=== PATIENT | male | born 1955 | race Two or more races ===

== ENCOUNTER 2017-07-30 20:37 | Inpatient (IN) | payer OTHER ==
[2017-07-30 21:43] VITALS: BMI 20.7
--- NOTE | 2017-07-30 21:56 | HP ---
CIWA Score - CIWA Score Nausea/Vomitin-Mild Nausea/No Vomiting Muscle Tremors: 3 Anxiety: 2 Agitation: 2 Paroxysmal Sweats: 3 Orientation: 0-Oriented Tacttile Disturbances: 0-None Auditory Disturbances: 1-Very Mild Visual Disturbances: 1-Very Mild Sensitivity Headache: 2-Mild CIWA-Ar Total Score: 15 Admission ROS S - HPI Chief Complaint: WITHDRAWAL SYMPTOMS Allergies/Adverse Reactions: Allergies Allergy/AdvReac Type Severity Reaction Status Date / Time No Known Allergies Allergy Verified 07/30/17 21:52 History of Present Illness: 62 Y.O. MAN AN EXTENSIVE HISTORY OF COCAINE, BENZODIAZEPINE AND MARIJUANA DEPENDENCE IS HERE SEEKING DETOX. HE REPORTS HE COMPLETED DETOX AND REHAB MANY YEARS AGO. HE IS CURRENTLY ENROLLED IN [facility]S MMTP AND REPORTS HE WAS LAST DOSED TODAY AT 30MG. HE STATES HE HAS A HISTORY OF 4 YEAR BEING CLEAN WHILE INCARCERATED. Exam Limitations: No Limitations - Ebola screening Have you traveled outside of the country in the last 21 days: No Have you had contact with anyone from an Ebola affected area: No Have you been sick,other than usual withdrawal symptoms: No Do you have a fever: No - Review of Systems Constitutional: Chills, Loss of Appetite, Night Sweats, Unexplained wgt Loss EENT: reports: Blurred Vision Respiratory: reports: Shortness of Breath Cardiac: reports: Chest Pain GI: reports: Constipated : reports: No Symptoms Reported Musculoskeletal: reports: Back Pain, Neck Pain Integumentary: reports: Rash Neuro: reports: Headache, Seizure, Tremors Endocrine: reports: Other (HYPOGLYCEMIC) Hematology: reports: Anemia (BECCA), Other (thrombocytopenia) Psychiatric: reports: Anxious, Depressed, other (BIPOLAR) Other Systems: Reviewed and Negative Patient History - Patient Medical History Hx Anemia: Yes (BECCA ) Hx Asthma: No Hx Chronic Obstructive Pulmonary Disease (COPD): Yes (Emphysema) Hx Cancer: Yes (PANCREATIC CA-) Hx Cardiac Disorders: Yes (MURMUR ) Hx Congestive Heart Failure: No Hx Hypertension: Yes Hx Hypercholesterolemia: No Hx Pacemaker: No HX Cerebrovascular Accident: No Hx Seizures: Yes (ON KEPPRA ) Hx Dementia: No Hx Diabetes: No (H/O HYPOGLYCEMIA ) Hx Gastrointestinal Disorders: Yes Hx Liver Disease: Yes (CIRRHOSIS OF THE LIVER STAGE 4) Hx Genitourinary Disorders: No Hx Sexually Transmitted Disorders: No Hx Renal Disease (ESRD): No Hx Thyroid Disease: No Hx Human Immunodeficiency Virus (HIV): No Hx Hepatitis C: Yes Hx Depression: Yes Hx Suicide Attempt: No (REPORTS SI BUT NO PLAN ) Hx Bipolar Disorder: Yes Hx Schizophrenia: No - Patient Surgical History Past Surgical History: Yes Hx Appendectomy: Yes Hx Cholecystectomy: Yes Other Surgical History: TX FOR PANCREATIC CA Anesthesia Reaction: No - PPD History Previous Implant?: Yes Documented Results: Negative w/o proof PPD to be Administered?: Yes - Reproductive History Patient is a Female of Child Bearing Age (11 -55 yrs old): No - Smoking Cessation Smoking history: Current every day smoker Have you smoked in the past 12 months: Yes Aproximately how many cigarettes per day: 5 Initiated information on smoking cessation: Yes 'Breaking Loose' booklet given: 07/30/17 - Substance & Tx. History Hx Alcohol Use: No Hx Substance Use: Yes (BENZODIAZEPINE, COCAINE, MARIJUANA ) Substance Use Type: Marijuana Hx Substance Use Treatment: Yes (DETOX AND REHAB: MANY YRS AGO; DOES NOT RECALL DATE ) - Substances Abused Alprazolam (Xanax) Route: Oral Frequency: Daily Amount used: 4-6 MG Age of first use: 50 Date of Last Use: 07/27/17 Crack Route: Smoking Frequency: Daily Amount used: 1 GM Age of first use: 17 Date of Last Use: 07/28/17 Marijuana/Hashish Route: Smoking Frequency: Daily Amount used: $10 Age of first use: 15 Date of Last Use: 07/28/17 Family Disease History - Family Disease History Family Disease History: Other: Mother (ALCOHOL DEPENDENT-) Admission Physical Exam [facility] - Vital Signs Vital Signs: Vital Signs - 24 hr 07/30/17 21:41 Temperature 98.1 F Pulse Rate 67 Respiratory 18 Rate Blood Pressure 138/73 - Physical General Appearance: Yes: Thin HEENTM: Yes: Hearing grossly Normal, Normocephalic Respiratory: Yes: Lungs Clear, Normal Breath Sounds, No Respiratory Distress, No Accessory Muscle Use Neck: Yes: No masses,lesions,Nodules, Trachea in good position Breast: Yes: Breast Exam Deferred Cardiology: Yes: Regular Rhythm, Regular Rate Abdominal: Yes: Normal Bowel Sounds, Non Tender, Flat Genitourinary: Yes: Other (NO COMPLAINTS REPORTED) Back: Yes: Normal Inspection Musculoskeletal: Yes: full range of Motion, Pelvis Stable Extremities: Yes: Normal Capillary Refill, Normal Inspection Neurological: Yes: Fully Oriented, Alert, Normal Mood/Affect, Normal Response Integumentary: Yes: Rash Lymphatic: Yes: Within Normal Limits - Diagnostic (1) Sedative, hypnotic or anxiolytic dependence with withdrawal, uncomplicated Current Visit: Yes Status: Chronic (2) Cocaine dependence, uncomplicated Current Visit: Yes Status: Chronic (3) Cannabis dependence, uncomplicated Current Visit: Yes Status: Chronic (4) Cirrhosis of liver Current Visit: Yes Status: Chronic (5) Emphysema lung Current Visit: Yes Status: Chronic (6) Hepatitis C Current Visit: Yes Status: Chronic (7) Pancreatic cancer Current Visit: Yes Status: Chronic (8) GERD (gastroesophageal reflux disease) Current Visit: Yes Status: Chronic (9) Seizure Current Visit: Yes Status: Chronic (10) Hypertension Current Visit: Yes Status: Chronic (11) Hypoglycemia Current Visit: Yes Status: Chronic (12) Anemia Current Visit: Yes Status: Chronic (13) Rash Current Visit: Yes Status: Acute (14) Opioid dependence on agonist therapy Current Visit: Yes Status: Chronic (15) Thrombocytopenia Current Visit: Yes Status: Chronic Cleared for Admission [facility] - Detox or Rehab [facility] Level of Care: Medically Managed Detox Regimen/Protocol: Valium [facility] Breath Alcohol Content Breath Alcohol Content: 0 Urine Drug Screen - Results Drug Screen Negative: No Urine Drug Screen Results: THC-Marijuana, GIANNI-Cocaine, OPI-Opiates, MTD- Methadone
[2017-07-30] MEDS ORDERED: P-EPHED 60MG/TRIPROLIDI 2.5MG TABLET PO PRN (22:29)
[2017-07-30] MEDS ORDERED: guaiFENesin/D-METHORPHAN HB 10 ML UNIT-DOSE CUPS PO PRN (22:29)
[2017-07-30] MEDS ORDERED: MENTHOL/PHENOL 1 EACH UD MM PRN (22:29)
[2017-07-30] MEDS ORDERED: MAGNESIUM CITRATE 300 ML BOTTLE PO PRN (22:29)
[2017-07-30] MEDS ORDERED: ACETAMINOPHEN 325 MG TABLET (FP) PO PRN (22:29)
[2017-07-30] MEDS ORDERED: LOPERAMIDE HCL 2 MG CAPSULE PO PRN (22:29)
[2017-07-30] MEDS ORDERED: MAG HYDROX/AL HYDROX/SIMETH 30 ML UNIT-DOSE CUP PO PRN (22:29)
[2017-07-30] MEDS ORDERED: MAGNESIUM HYDROX 2400MG/30ML ORAL SUSPENSION 30 ML CUP PO PRN (22:29)
[2017-07-30] MEDS ORDERED: hydrOXYzine PAMOATE 50 MG CAPSULE (FP) PO PRN (22:29)
[2017-07-30] MEDS ORDERED: IBUPROFEN 400 MG TABLET (FP) PO PRN (22:29)
[2017-07-30] MEDS ORDERED: diazePAM 5 MG TABLET PO ONE (22:29)
[2017-07-31 00:17] LABS: URINE APPEARANCE SLCLOUDY; URINE BILIRUBIN NEGATIVE (NEGATIVE); URINE BLOOD NEGATIVE (NEGATIVE); URINE COLOR DKYELLOW; URINE GLUCOSE (UA) NEGATIVE (NEGATIVE); URINE KETONE NEGATIVE (NEGATIVE); URINE NITRITE NEGATIVE (NEGATIVE); URINE PROTEIN NEGATIVE (NEGATIVE)
[2017-07-31] MEDS: diazePAM 5 MG TABLET PO SCH ×4 (01:35→22:08)
[2017-07-31] MEDS: NYSTATIN 100000 UNIT/GM TOPICAL OINTMENT 15 GM TUBE TP SCH ×3 (01:35→22:08)
[2017-07-31] MEDS: diazePAM 5 MG TABLET PO PRN ×3 (02:13→17:19)
[2017-07-31] MEDS: PRENATAL VITAMINS W/ FOLIC ACID TABLET (FP) PO SCH (09:58)
[2017-07-31] MEDS: PANTOPRAZOLE 20 MG TABLET (FP) PO SCH (09:58)
[2017-07-31] MEDS: METHADONE HCL 10 MG TABLET PO SCH (09:58)
[2017-07-31 10:08] LABS: MCH 26.9 pg (25.7-33.7); MCHC 32.7 g/dl (32.0-35.9); MEAN CELL VOLUME 82.4 fl (80-96); MEAN PLT VOLUME 9.4 fl (7.5-11.1); RDW 18.8 % (11.9-15.9)
[2017-07-31 10:17] LABS: PLATELET COUNT 35 K/MM3 (134-434); WHITE BLOOD COUNT 1.5 K/mm3 (4.0-10.0)
[2017-07-31 10:18] LABS: SGOT/AST 88 U/L (15-37); SGPT/ALT 82 U/L (12-78)
[2017-07-31 10:22] LABS: ALBUMIN 2.3 g/dl (3.4-5.0); ALK PHOS 251 U/L (45-117); ANION GAP 6 (8-16); BILIRUBIN,TOTAL 0.6 mg/dL (0.2-1.0); CALCIUM 7.6 mg/dL (8.5-10.1); CO2 26 mmol/L (21-32); CREATININE 0.4 mg/dL (0.7-1.3); GLUCOSE,RANDOM 80 mg/dL (74-106); TOT PROT 5.7 g/dl (6.4-8.2)
--- NOTE | 2017-07-31 10:26 | EKG ---
Test Reason : Blood Pressure : / mmHG Vent. Rate : 059 BPM Atrial Rate : 059 BPM P-R Int : 126 ms QRS Dur : 084 ms QT Int : 482 ms P-R-T Axes : 066 021 053 degrees QTc Int : 477 ms SINUS BRADYCARDIA OTHERWISE NORMAL ECG NO PREVIOUS ECGS AVAILABLE Confirmed by DOROTHY KATHLEEN, ERIBERTO ([id number]) on 07/31/2017 10:25:54 AM Referred By: Confirmed By:ERIBERTO DE LA CRUZ MD
--- NOTE | 2017-07-31 11:12 | CONSULT ---
[facility] Psychiatric Consult - Data Date of interview: 07/31/17 Admission source: [facility] Identifying data: Readmission to [facility] for this 62 y/o male seeking detox treatment on for cocaine,cannabis and benzodiazepine dependence.Patient is single without children,homeless ([facility]), unemployed and supported on Public Assistance. Substance Abuse History: Patient admits to active use of cocaine,marihuana and xanax.See [facility] report for details. Smoking history: Current every day smoker. Have you smoked in the past 12 months: Yes. Aproximately how many cigarettes per day: 5. Initiated information on smoking cessation: Yes. 'Breaking Loose' booklet given: 07/30/17. - Substance & Tx. History. Hx Alcohol Use: No. Hx Substance Use: Yes (BENZODIAZEPINE, COCAINE, MARIJUANA ). Substance Use Type: Marijuana. Hx Substance Use Treatment: Yes (DETOX AND REHAB: MANY YRS AGO; DOES NOT RECALL DATE ). - Substances Abused. Alprazolam (Xanax). Route: Oral. Frequency: Daily. Amount used: 4-6 MG. Age of first use: 50. Date of Last Use: 07/27/17. Crack. Route: Smoking. Frequency: Daily. Amount used : 1 GM. Age of first use: 17. Date of Last Use: 07/28/17. Marijuana/ Hashish. Route: Smoking. Frequency: Daily. Amount used: $10. Age of first use: 15. Date of Last Use: 07/28/17 Medical History: Multiple co-morbidities : anemia,thrombocytopenia,liver cirrhosis,pancreatic cancer,hepatitis C,hypertension,seizure disorder (on levetiracetam),emphysema and arthritis. Psychiatric History: Patient reports a previous psychiatric hospitalization at [facility] in [facility] (2016).Diagnosed with MDD,Anxiety Disorder." Not sure " about Bipolar Disorder.Mr Carrasquillo indicates that he used to be prescribed risperdal " a while back." No recent OPD care.Lost to follow up for months.Patient declines to resume risperdal or psychotropic medications other than his current detoxification protocol.No reported history of suicide attempts.Currently on methadone maintenance (30 mg/day) at [facility] in [facility]. Physical/Sexual Abuse/Trauma History: No history of abuse. Additional Comment: Urine Drug Screen Results: THC-Marijuana, GIANNI-Cocaine, OPI- Opiates, MTD-Methadone.Noted. Mental Status Exam - Mental Status Exam Alert and Oriented to: Time, Place, Person Cognitive Function: Good Patient Appearance: Well Groomed Mood: Withdrawn, Hopeful Affect: Mood Congruent Patient Behavior: Fatigued, Appropriate, Cooperative Speech Pattern: Clear, Appropriate Voice Loudness: Normal Thought Process: Intact, Goal Oriented Thought Disorder: Not Present Hallucinations: Denies Suicidal Ideation: Denies Homicidal Ideation: Denies Insight/Judgement: Poor Sleep: Well Appetite: Poor, Weight loss Muscle strength/Tone: Normal Gait/Station: Normal Psychiatric Findings - Problem List ([place] 1, 2,3) (1) Opioid dependence on agonist therapy Current Visit: Yes Status: Chronic (2) Sedative, hypnotic or anxiolytic dependence with withdrawal, uncomplicated Current Visit: Yes Status: Acute (3) Cocaine dependence, uncomplicated Current Visit: Yes Status: Acute (4) Cannabis dependence, uncomplicated Current Visit: Yes Status: Acute (5) Nicotine dependence Current Visit: Yes Status: Acute Qualifiers: Nicotine product type: cigarettes Substance use status: in withdrawal Qualified Code(s): F17.213 - Nicotine dependence, cigarettes, with withdrawal - Initial Treatment Plan Initial Treatment Plan: Psychoeducation.Detoxification.Observation.
[2017-07-31] MEDS ORDERED: PNEUMOC 13-VAL CONJ-DIP CRM/PF 0.5 ML DISP.SYRIN IM ONE (12:00)
[2017-07-31] MEDS ORDERED: FLU VACCINE QUAD 60 MCG/0.5 ML (MDV 17-18) IM ONE (12:00)
[2017-07-31] MEDS ORDERED: PNEUMOCOCCAL 23 VACCINE 0.5 ML VIAL IM ONE (12:00)
--- NOTE | 2017-07-31 12:42 | PN ---
[facility] CIWA - CIWA Score Nausea/Vomitin-No Nausea/No Vomiting Muscle Tremors: 4-Moderate,w/Arms Extend Anxiety: 4-Mod. Anxious/Guarded Agitation: 3 Paroxysmal Sweats: 1-Minimal Palms Moist Orientation: 0-Oriented Tacttile Disturbances: 3-Moderate Itch/Numb/Burn Auditory Disturbances: 0-None Visual Disturbances: 0-None Headache: 0-None Present CIWA-Ar Total Score: 15 S Progress Note (SOAP) Subjective: ANXIETY,IRRITABILITY,RESTLESS,FATIGUE. Objective: 07/31/17 12:41 Vital Signs 07/31/17 09:30 Temperature 98.4 F Pulse Rate 85 Respiratory 18 Rate Blood Pressure 159/92 Laboratory Last Values WBC 1.5 K/mm3 (4.0-10.0) L* 07/31/17 07:00 RBC 3.43 M/mm3 (4.00-5.60) L 07/31/17 07:00 Hgb 9.2 GM/dL (11.7-16.9) L 07/31/17 07:00 Hct 28.2 % (35.4-49) L 07/31/17 07:00 MCV 82.4 fl (80-96) 07/31/17 07:00 MCH 26.9 pg (25.7-33.7) 07/31/17 07:00 MCHC 32.7 g/dl (32.0-35.9) 07/31/17 07:00 RDW 18.8 % (11.9-15.9) H 07/31/17 07:00 Plt Count 35 K/MM3 (134-434) L* 07/31/17 07:00 MPV 9.4 fl (7.5-11.1) 07/31/17 07:00 Sodium 140 mmol/L (136-145) 07/31/17 07:00 Potassium 3.8 mmol/L (3.5-5.1) 07/31/17 07:00 Chloride 108 mmol/L (98-107) H 07/31/17 07:00 Carbon Dioxide 26 mmol/L (21-32) 07/31/17 07:00 Anion Gap 6 (8-16) L 07/31/17 07:00 BUN 11 mg/dL (7-18) 07/31/17 07:00 Creatinine 0.4 mg/dL (0.7-1.3) L 07/31/17 07:00 Creat Clearance w eGFR > 60 (>60) 07/31/17 07:00 POC Glucometer 89 UNITS (80-120) 07/31/17 05:38 Random Glucose 80 mg/dL (74-106) 07/31/17 07:00 Calcium 7.6 mg/dL (8.5-10.1) L 07/31/17 07:00 Total Bilirubin 0.6 mg/dL (0.2-1.0) 07/31/17 07:00 AST 88 U/L (15-37) H 07/31/17 07:00 ALT 82 U/L (12-78) H 07/31/17 07:00 Alkaline Phosphatase 251 U/L (45-117) H 07/31/17 07:00 Total Protein 5.7 g/dl (6.4-8.2) L 07/31/17 07:00 Albumin 2.3 g/dl (3.4-5.0) L 07/31/17 07:00 Urine Color Dkyellow 07/30/17 23:43 Urine Appearance Slcloudy 07/30/17 23:43 Urine pH 6.0 (5.0-8.0) 07/30/17 23:43 Ur Specific [place] 1.025 (1.001-1.035) 07/30/17 23:43 Urine Protein Negative (NEGATIVE) 07/30/17 23:43 Urine Glucose (UA) Negative (NEGATIVE) 07/30/17 23:43 Urine Ketones Negative (NEGATIVE) 07/30/17 23:43 Urine Blood Negative (NEGATIVE) 07/30/17 23:43 Urine Nitrite Negative (NEGATIVE) 07/30/17 23:43 Urine Bilirubin Negative (NEGATIVE) 07/30/17 23:43 Urine Urobilinogen 2.0 mg/dL (0.2-1.0) 07/30/17 23:43 Assessment: 07/31/17 12:41 WITHDRAWAL SX Plan: CONTINUE DETOX
[2017-07-31 13:45] LABS: HIV 1 & 2 AB NEGATIVE; HIV 1 AGp24 NEGATIVE
[2017-07-31] MEDS ORDERED: levETIRAcetam 250 MG TABLET (FP) PO ONE (16:00)
[2017-07-31 17:50] LABS: URINE LEUK ESTERASE Negative (NEGATIVE)
[2017-07-31] MEDS: THIAMINE HCL 100 MG TABLET (FP) PO SCH (22:08)
[2017-07-31] MEDS: levETIRAcetam 250 MG TABLET (FP) PO SCH (22:08)
[2017-08-01] MEDS: METHADONE HCL 10 MG TABLET PO SCH (05:23)
[2017-08-01] MEDS: diazePAM 5 MG TABLET PO PRN (05:23)
[2017-08-01 10:02] LABS: BASOPHIL 0.7 % (0-2.0); EOSINOPHIL 5.2 % (0-4.5); MCH 27.1 pg (25.7-33.7); MCHC 32.5 g/dl (32.0-35.9); MEAN CELL VOLUME 83.3 fl (80-96); MEAN PLT VOLUME 8.9 fl (7.5-11.1); NEUTROPHILS 47.4 % (42.8-82.8); PLATELET COUNT 38 K/MM3 (134-434); RDW 18.8 % (11.9-15.9)
[2017-08-01] MEDS: diazePAM 5 MG TABLET PO SCH ×2 (10:54→22:36)
[2017-08-01] MEDS: PRENATAL VITAMINS W/ FOLIC ACID TABLET (FP) PO SCH (10:55)
[2017-08-01] MEDS: levETIRAcetam 250 MG TABLET (FP) PO SCH ×2 (10:55→22:36)
[2017-08-01] MEDS: PANTOPRAZOLE 20 MG TABLET (FP) PO SCH (10:55)
[2017-08-01] MEDS: NYSTATIN 100000 UNIT/GM TOPICAL OINTMENT 15 GM TUBE TP SCH ×2 (11:24→22:37)
--- NOTE | 2017-08-01 11:55 | PN ---
[facility] CIWA - CIWA Score Nausea/Vomitin-No Nausea/No Vomiting Muscle Tremors: 4-Moderate,w/Arms Extend Anxiety: 4-Mod. Anxious/Guarded Agitation: 4-Moderately Restless Paroxysmal Sweats: 1-Minimal Palms Moist Orientation: 0-Oriented Tacttile Disturbances: 3-Moderate Itch/Numb/Burn Auditory Disturbances: 0-None Visual Disturbances: 0-None Headache: 0-None Present CIWA-Ar Total Score: 16 [facility] Progress Note (SOAP) Subjective: ANXIETY,TREMORS,IRRITABILITY,RESTLESS,FATIGUE. Objective: 08/01/17 11:54 Vital Signs Temperature 98.4 F 08/01/17 11:10 Pulse Rate 82 08/01/17 11:10 Respiratory Rate 18 08/01/17 11:10 Blood Pressure 121/75 08/01/17 11:10 O2 Sat by Pulse Oximetry (%) Laboratory Last Values WBC 2.0 K/mm3 (4.0-10.0) L D 08/01/17 08:50 RBC 3.59 M/mm3 (4.00-5.60) L 08/01/17 08:50 Hgb 9.7 GM/dL (11.7-16.9) L 08/01/17 08:50 Hct 29.9 % (35.4-49) L 08/01/17 08:50 MCV 83.3 fl (80-96) 08/01/17 08:50 MCH 27.1 pg (25.7-33.7) 08/01/17 08:50 MCHC 32.5 g/dl (32.0-35.9) 08/01/17 08:50 RDW 18.8 % (11.9-15.9) H 08/01/17 08:50 Plt Count 38 K/MM3 (134-434) L 08/01/17 08:50 MPV 8.9 fl (7.5-11.1) 08/01/17 08:50 Neutrophils % 47.4 % (42.8-82.8) 08/01/17 08:50 Lymphocytes % 31.3 % (8-40) 08/01/17 08:50 Monocytes % 15.4 % (3.8-10.2) H 08/01/17 08:50 Eosinophils % 5.2 % (0-4.5) H 08/01/17 08:50 Basophils % 0.7 % (0-2.0) 08/01/17 08:50 Sodium 140 mmol/L (136-145) 07/31/17 07:00 Potassium 3.8 mmol/L (3.5-5.1) 07/31/17 07:00 Chloride 108 mmol/L (98-107) H 07/31/17 07:00 Carbon Dioxide 26 mmol/L (21-32) 07/31/17 07:00 Anion Gap 6 (8-16) L 07/31/17 07:00 BUN 11 mg/dL (7-18) 07/31/17 07:00 Creatinine 0.4 mg/dL (0.7-1.3) L 07/31/17 07:00 Creat Clearance w eGFR > 60 (>60) 07/31/17 07:00 Random Glucose 80 mg/dL (74-106) 07/31/17 07:00 POC Glucometer 104 UNITS (80-120) 08/01/17 05:22 Calcium 7.6 mg/dL (8.5-10.1) L 07/31/17 07:00 Total Bilirubin 0.6 mg/dL (0.2-1.0) 07/31/17 07:00 AST 88 U/L (15-37) H 07/31/17 07:00 ALT 82 U/L (12-78) H 07/31/17 07:00 Alkaline Phosphatase 251 U/L (45-117) H 07/31/17 07:00 Total Protein 5.7 g/dl (6.4-8.2) L 07/31/17 07:00 Albumin 2.3 g/dl (3.4-5.0) L 07/31/17 07:00 Urine Color Dkyellow 07/30/17 23:43 Urine Appearance Slcloudy 07/30/17 23:43 Urine pH 6.0 (5.0-8.0) 07/30/17 23:43 Ur Specific [employer] 1.025 (1.001-1.035) 07/30/17 23:43 Urine Protein Negative (NEGATIVE) 07/30/17 23:43 Urine Glucose (UA) Negative (NEGATIVE) 07/30/17 23:43 Urine Ketones Negative (NEGATIVE) 07/30/17 23:43 Urine Blood Negative (NEGATIVE) 07/30/17 23:43 Urine Nitrite Negative (NEGATIVE) 07/30/17 23:43 Urine Bilirubin Negative (NEGATIVE) 07/30/17 23:43 Urine Urobilinogen 2.0 mg/dL (0.2-1.0) 07/30/17 23:43 Ur Leukocyte Esterase Negative (NEGATIVE) 07/30/17 23:43 RPR Titer Nonreactive (NONREACTIVE) 07/31/17 07:00 HIV 1&2 Antibody Screen Negative 07/31/17 07:00 HIV P24 Antigen Negative 07/31/17 07:00 Assessment: 08/01/17 11:55 WITHDRAWAL SX Plan: CONTINUE DETOX INCREASE PO FLUIDS.
[2017-08-01] MEDS: FERROUS SO4 325 MG TABLET (FP) PO SCH (14:38)
[2017-08-01] MEDS: THIAMINE HCL 100 MG TABLET (FP) PO SCH (22:36)
[2017-08-02] MEDS ORDERED: TRIMETHOBENZAMIDE HCL 200MG/2ML INJ IM PRN (01:44)
[2017-08-02] MEDS: diazePAM 5 MG TABLET PO PRN (05:20)
[2017-08-02] MEDS: METHADONE HCL 10 MG TABLET PO SCH (05:20)
[2017-08-02] MEDS: PRENATAL VITAMINS W/ FOLIC ACID TABLET (FP) PO SCH (10:36)
[2017-08-02] MEDS: diazePAM 5 MG TABLET PO SCH ×2 (10:36→22:07)
[2017-08-02] MEDS: FERROUS SO4 325 MG TABLET (FP) PO SCH (10:36)
[2017-08-02] MEDS: NYSTATIN 100000 UNIT/GM TOPICAL OINTMENT 15 GM TUBE TP SCH ×2 (10:37→22:07)
[2017-08-02] MEDS: levETIRAcetam 250 MG TABLET (FP) PO SCH ×2 (10:37→22:07)
[2017-08-02] MEDS: PANTOPRAZOLE 20 MG TABLET (FP) PO SCH (10:37)
[2017-08-02 11:08] LABS: ALBUMIN 2.4 g/dl (3.4-5.0); ANION GAP 10 (8-16); CALCIUM 7.3 mg/dL (8.5-10.1); CO2 23 mmol/L (21-32); GLUCOSE,RANDOM 94 mg/dL (74-106)
[2017-08-02 11:13] LABS: ALK PHOS 288 U/L (45-117); BILIRUBIN,TOTAL 0.6 mg/dL (0.2-1.0); CREATININE 0.5 mg/dL (0.7-1.3); SGOT/AST 99 U/L (15-37); SGPT/ALT 89 U/L (12-78); TOT PROT 6.1 g/dl (6.4-8.2)
--- NOTE | 2017-08-02 11:47 | PN ---
[facility] Progress Note (SOAP) Subjective: ANXIETY,SWEATS,ABDOMINAL DISCOMFORT, FATIGUE. Objective: 08/02/17 11:53 Vital Signs Temperature 99.1 F 08/02/17 09:26 Pulse Rate 79 08/02/17 09:26 Respiratory Rate 18 08/02/17 09:26 Blood Pressure 115/69 08/02/17 09:26 O2 Sat by Pulse Oximetry (%) Laboratory Last Values WBC 2.0 K/mm3 (4.0-10.0) L D 08/01/17 08:50 RBC 3.59 M/mm3 (4.00-5.60) L 08/01/17 08:50 Hgb 9.7 GM/dL (11.7-16.9) L 08/01/17 08:50 Hct 29.9 % (35.4-49) L 08/01/17 08:50 MCV 83.3 fl (80-96) 08/01/17 08:50 MCH 27.1 pg (25.7-33.7) 08/01/17 08:50 MCHC 32.5 g/dl (32.0-35.9) 08/01/17 08:50 RDW 18.8 % (11.9-15.9) H 08/01/17 08:50 Plt Count 38 K/MM3 (134-434) L 08/01/17 08:50 MPV 8.9 fl (7.5-11.1) 08/01/17 08:50 Neutrophils % 47.4 % (42.8-82.8) 08/01/17 08:50 Lymphocytes % 31.3 % (8-40) 08/01/17 08:50 Monocytes % 15.4 % (3.8-10.2) H 08/01/17 08:50 Eosinophils % 5.2 % (0-4.5) H 08/01/17 08:50 Basophils % 0.7 % (0-2.0) 08/01/17 08:50 Sodium 141 mmol/L (136-145) 08/02/17 07:35 Potassium 4.2 mmol/L (3.5-5.1) 08/02/17 07:35 Chloride 108 mmol/L (98-107) H 08/02/17 07:35 Carbon Dioxide 23 mmol/L (21-32) 08/02/17 07:35 Anion Gap 10 (8-16) 08/02/17 07:35 BUN 8 mg/dL (7-18) D 08/02/17 07:35 Creatinine 0.5 mg/dL (0.7-1.3) L D 08/02/17 07:35 Creat Clearance w eGFR > 60 (>60) 08/02/17 07:35 POC Glucometer 107 UNITS (80-120) 08/02/17 05:20 Random Glucose 94 mg/dL (74-106) 08/02/17 07:35 Calcium 7.3 mg/dL (8.5-10.1) L 08/02/17 07:35 Total Bilirubin 0.6 mg/dL (0.2-1.0) 08/02/17 07:35 AST 99 U/L (15-37) H 08/02/17 07:35 ALT 89 U/L (12-78) H 08/02/17 07:35 Alkaline Phosphatase 288 U/L (45-117) H 08/02/17 07:35 Total Protein 6.1 g/dl (6.4-8.2) L 08/02/17 07:35 Albumin 2.4 g/dl (3.4-5.0) L 08/02/17 07:35 Urine Color Dkyellow 07/30/17 23:43 Urine Appearance Slcloudy 07/30/17 23:43 Urine pH 6.0 (5.0-8.0) 07/30/17 23:43 Ur Specific [place] 1.025 (1.001-1.035) 07/30/17 23:43 Urine Protein Negative (NEGATIVE) 07/30/17 23:43 Urine Glucose (UA) Negative (NEGATIVE) 07/30/17 23:43 Urine Ketones Negative (NEGATIVE) 07/30/17 23:43 Urine Blood Negative (NEGATIVE) 07/30/17 23:43 Urine Nitrite Negative (NEGATIVE) 07/30/17 23:43 Urine Bilirubin Negative (NEGATIVE) 07/30/17 23:43 Urine Urobilinogen 2.0 mg/dL (0.2-1.0) 07/30/17 23:43 Ur Leukocyte Esterase Negative (NEGATIVE) 07/30/17 23:43 RPR Titer Nonreactive (NONREACTIVE) 07/31/17 07:00 HIV 1&2 Antibody Screen Negative 07/31/17 07:00 HIV P24 Antigen Negative 07/31/17 07:00 Assessment: 08/02/17 11:54 WITHDRAWAL SX THROMBOCYTOPENIA Plan: CONTINUE DETOX
[2017-08-02 17:44] VITALS: PULSE 81
[2017-08-02] MEDS: THIAMINE HCL 100 MG TABLET (FP) PO SCH (22:06)
[2017-08-03] MEDS: METHADONE HCL 10 MG TABLET PO SCH (05:35)
[2017-08-03 06:19] VITALS: BP 126/72; TEMP 99.9
[2017-08-03] MEDS ORDERED: diazePAM 5 MG TABLET PO SCH (10:00)
--- NOTE | 2017-08-03 18:37 | DS ---
[facility] Detox Discharge Summary Admission Date: 07/30/17 Discharge Date: 08/03/17 - History Present History: Cannabis Dependence, Cocaine Dependence, Opioid Dependence, Sedative Dependence, MMTP Additional Comments: PATIENT GOING TO [facility] ([place], [place] FOR AFTERCARE. PATIENT WAS DISCHARGED FROM DETOX UNIT IN STABLE MEDICAL CONDITION. Pertinent Past History: History of Anemia, History of Thrombocytopenia, HTN, Cirrhosis of Liver, COPD ( Emphysema), History of Pancreatic Ca, Nicotine Depoendence, History of Seizures , History of Hypoglycemia, MMTP, GERD. - Physical Exam Results Vital Signs: Vital Signs Temperature 99.9 F H 08/03/17 06:18 Pulse Rate 81 08/03/17 06:18 Respiratory Rate 16 08/03/17 06:18 Blood Pressure 126/72 08/03/17 06:18 O2 Sat by Pulse Oximetry (%) Pertinent Admission Physical Exam Findings: WITHDRAWAL SYMPTOMS. Laboratory Tests 07/30/17 07/31/17 07/31/17 23:43 05:38 07:00 WBC 1.5 L* RBC 3.43 L Hgb 9.2 L Hct 28.2 L MCV 82.4 MCH 26.9 MCHC 32.7 RDW 18.8 H Plt Count 35 L* MPV 9.4 Neutrophils % Lymphocytes % Monocytes % Eosinophils % Basophils % Sodium Potassium Chloride Carbon Dioxide Anion Gap BUN Creatinine Creat Clearance w eGFR POC Glucometer 89 Random Glucose Calcium Total Bilirubin AST ALT Alkaline Phosphatase Total Protein Albumin Urine Color Dkyellow Urine Appearance Slcloudy Urine pH 6.0 Ur Specific [place] 1.025 Urine Protein Negative Urine Glucose (UA) Negative Urine Ketones Negative Urine Blood Negative Urine Nitrite Negative Urine Bilirubin Negative Urine Urobilinogen 2.0 Ur Leukocyte Esterase Negative RPR Titer HIV 1&2 Antibody Screen HIV P24 Antigen 07/31/17 07/31/17 07/31/17 07:00 07:00 07:00 WBC RBC Hgb Hct MCV MCH MCHC RDW Plt Count MPV Neutrophils % Lymphocytes % Monocytes % Eosinophils % Basophils % Sodium 140 Potassium 3.8 Chloride 108 H Carbon Dioxide 26 Anion Gap 6 L BUN 11 Creatinine 0.4 L Creat Clearance w eGFR > 60 POC Glucometer Random Glucose 80 Calcium 7.6 L Total Bilirubin 0.6 AST 88 H ALT 82 H Alkaline Phosphatase 251 H Total Protein 5.7 L Albumin 2.3 L Urine Color Urine Appearance Urine pH Ur Specific [place] Urine Protein Urine Glucose (UA) Urine Ketones Urine Blood Urine Nitrite Urine Bilirubin Urine Urobilinogen Ur Leukocyte Esterase RPR Titer Nonreactive HIV 1&2 Antibody Screen Negative HIV P24 Antigen Negative 08/01/17 08/01/17 08/02/17 05:22 08:50 05:20 WBC 2.0 L D RBC 3.59 L Hgb 9.7 L Hct 29.9 L MCV 83.3 MCH 27.1 MCHC 32.5 RDW 18.8 H Plt Count 38 L MPV 8.9 Neutrophils % 47.4 Lymphocytes % 31.3 Monocytes % 15.4 H Eosinophils % 5.2 H Basophils % 0.7 Sodium Potassium Chloride Carbon Dioxide Anion Gap BUN Creatinine Creat Clearance w eGFR POC Glucometer 104 107 Random Glucose Calcium Total Bilirubin AST ALT Alkaline Phosphatase Total Protein Albumin Urine Color Urine Appearance Urine pH Ur Specific [place] Urine Protein Urine Glucose (UA) Urine Ketones Urine Blood Urine Nitrite Urine Bilirubin Urine Urobilinogen Ur Leukocyte Esterase RPR Titer HIV 1&2 Antibody Screen HIV P24 Antigen 08/02/17 08/03/17 07:35 05:36 WBC RBC Hgb Hct MCV MCH MCHC RDW Plt Count MPV Neutrophils % Lymphocytes % Monocytes % Eosinophils % Basophils % Sodium 141 Potassium 4.2 Chloride 108 H Carbon Dioxide 23 Anion Gap 10 BUN 8 D Creatinine 0.5 L D Creat Clearance w eGFR > 60 POC Glucometer 100 Random Glucose 94 Calcium 7.3 L Total Bilirubin 0.6 AST 99 H ALT 89 H Alkaline Phosphatase 288 H Total Protein 6.1 L Albumin 2.4 L Urine Color Urine Appearance Urine pH Ur Specific [place] Urine Protein Urine Glucose (UA) Urine Ketones Urine Blood Urine Nitrite Urine Bilirubin Urine Urobilinogen Ur Leukocyte Esterase RPR Titer HIV 1&2 Antibody Screen HIV P24 Antigen LABS NOTED. - Treatment Hospital Course: Detox Protocol Followed, Detoxed Safely, Responded well, Discharged Condition Good Patient has Accepted a Rehab Referral to: PT. GOING TO [facility] [place] - Medication Discharge Medications: Ambulatory Orders Levetiracetam [Keppra -] 750 mg PO BID #60 tablet 08/03/17 - Diagnosis (1) Cannabis dependence, uncomplicated Status: Acute (2) Cocaine dependence, uncomplicated Status: Acute (3) Nicotine dependence Status: Acute Qualifiers: Nicotine product type: cigarettes Substance use status: in withdrawal Qualified Code(s): F17.213 - Nicotine dependence, cigarettes, with withdrawal (4) Rash Status: Acute (5) Sedative, hypnotic or anxiolytic dependence with withdrawal, uncomplicated Status: Acute (6) Cirrhosis of liver Status: Chronic Qualifiers: Hepatic cirrhosis type: unspecified hepatic cirrhosis Ascites presence: without ascites Qualified Code(s): K74.60 - Unspecified cirrhosis of liver (7) Emphysema lung Status: Chronic Qualifiers: Emphysema type: unspecified Qualified Code(s): J43.9 - Emphysema, unspecified (8) GERD (gastroesophageal reflux disease) Status: Chronic Qualifiers: Esophagitis presence: esophagitis presence not specified Qualified Code(s) : K21.9 - Gastro-esophageal reflux disease without esophagitis (9) Hepatitis C Status: Chronic Qualifiers: Viral hepatitis chronicity: chronic Hepatic coma status: without hepatic coma Qualified Code(s): B18.2 - Chronic viral hepatitis C (10) Hypertension Status: Chronic Qualifiers: Hypertension type: essential hypertension Qualified Code(s): I10 - Essential (primary) hypertension (11) Hypoglycemia Status: Chronic (12) Opioid dependence on agonist therapy Status: Chronic (13) Pancreatic cancer Status: Chronic (14) Seizure Status: Chronic (15) Thrombocytopenia Status: Chronic (16) Anemia Status: Suspected - AMA Did Patient Leave Against Medical Advice: No
== END 2017-08-03 10:24 | disposition home or self-care (01) | DRG 773 ==
LOC: YASAS 20:37 → Y3N 23:27
PROVIDERS: ADMIT Internal Medicine; ATTEND Internal Medicine
PROC: HZ2ZZZZ Detoxification Services for Substance Abuse Treatment (ICD-10-PCS; principal; 2017-07-30)
DX: F11.20 Opioid dependence, uncomplicated (principal); F13.230 Sedative, hypnotic or anxiolytic dependence with withdrawal, uncomplicated; F14.20 Cocaine dependence, uncomplicated; F12.20 Cannabis dependence, uncomplicated; F17.213 Nicotine dependence, cigarettes, with withdrawal; F31.9 Bipolar disorder, unspecified; I10 Essential (primary) hypertension; J43.9 Emphysema, unspecified; K21.9 Gastro-esophageal reflux disease without esophagitis; E16.2 Hypoglycemia, unspecified; K74.60 Unspecified cirrhosis of liver; D50.8 Other iron deficiency anemias; R21 Rash and other nonspecific skin eruption; D69.6 Thrombocytopenia, unspecified; C25.9 Malignant neoplasm of pancreas, unspecified
CPT/HCPCS: 36415; 80053; 81003; 85025; 85027; 86593; 87389; 90688; 90732; 93005; 93010; G0008; G0009